=== PATIENT | male | born 1950 | race Caucasian/White ===

== ENCOUNTER → 2019-09-18 | Outpatient (CLI) | payer BC | END | disposition home or self-care (01) | LOC: LABWHC1 12:41 | PROVIDERS: ATTEND Family Medicine | DX: S86.011A Strain of right Achilles tendon, initial encounter (principal); M79.671 Pain in right foot | CPT/HCPCS: 36415; 85379 ==

== ENCOUNTER 2023-12-05 12:16 | Observation (INO) | payer BC ==
[2023-12-05] MEDS ORDERED: LIDOCAINE 1% INJ 10MG/ML (20 ML MDV) ONE (13:58)
[2023-12-05] MEDS ORDERED: HEPARIN SODIUM,PORCINE 30 ML 30 ML ONE (13:58)
[2023-12-05] MEDS ORDERED: VERAPAMIL 2.5 MG/ML 2 ML AMP ONE (13:58)
[2023-12-05] MEDS: IV FLUID CONTINUATION 1,000 ML IV ONE (14:35)
[2023-12-05] MEDS: HEPARIN SODIUM 1,000 UN/ML (10ML VL) IVP ONE (14:45)
[2023-12-05] MEDS: MIDAZOLAM 2 MG/2 ML VIAL IVP ONE (14:46)
[2023-12-05] MEDS: HYDROmorphone 0.5 MG/0.5 ML SYRINGE IVP ONE ×2 (14:46)
[2023-12-05] MEDS: VERAPAMIL SYRINGE (5 MG/10 ML) INTRAARTER ONE (14:47)
[2023-12-05] MEDS: LIDOCAINE 1% INJ 10MG/ML (30 ML VIAL-PF) SQ ONE (14:47)
[2023-12-05] MEDS ORDERED: NITROGLYCERIN SL TABS 0.4 MG TAB SUBLINGUAL ONE (14:59)
[2023-12-05] MEDS ORDERED: TICAGRELOR 90 MG TAB ONE (14:59)
[2023-12-05] MEDS ORDERED: ASPIRIN 81 MG ONE (15:01)
[2023-12-05] MEDS: ASPIRIN 81 MG PO ONE (15:06)
[2023-12-05] MEDS: NITROGLYCERIN SL TABS 0.4 MG TAB SUBLINGUAL ONE (15:07)
[2023-12-05] MEDS: TICAGRELOR 90 MG TAB PO ONE (15:07)
[2023-12-05] MEDS: IOPAMIDOL-370 100ML BTL INJ ONE ×2 (15:19→15:22)
[2023-12-05] MEDS: SODIUM CHLORIDE 0.9% 1,000 ML IV ONE (15:40)
[2023-12-05] MEDS: SODIUM CHLORIDE 0.9% 1,000 ML IV SCH (18:53)
[2023-12-05] MEDS: INSULIN ASPART (NovoLOG) 100 UNIT/ML VIAL SQ SCH (18:53)
[2023-12-05 20:56] LABS: Glucose,Whole Blood 246 mg/dL (70-110)
[2023-12-05] MEDS: ATORVASTATIN 80 MG TAB PO SCH (21:12)
[2023-12-05] MEDS: amLODIPine 5 MG TAB PO SCH (21:12)
--- NOTE | 2023-12-06 00:10 | PTCA ---
PERCUTANEOUSTRANS CORORONARY ANGIOGRAPHY PROCEDURE PERFORMED: PTCA and stenting of mid RCA with 2 drug-eluting stents. PERFORMED BY: Dr. Russ Portillo. ANESTHESIA: Moderate conscious sedation time was 45 minutes. Patient was administered Versed. Oxygen saturation, hemodynamics, and EKG were monitored closely. CLINICAL INFORMATION: Mr. Levi Mcguire is a 73-year-old morbidly obese gentleman with type 2 diabetes, hypertension, hyperlipidemia. He came in to [facility] with chest pain suggestive of angina, then had troponin elevation with no significant EKG changes. His clinical picture was that of a fpr-II-nktesvmvv SD. He also had a previous stenting in 2010, details unavailable. In view of his iwa-WM-[id number] SD and significant risk factors from previous PCI, I recommended coronary angiography and this was performed at [facility]. He also has mild aortic stenosis. Cardiac cath revealed an 80% mid RCA lesion just beyond the long stented segment and he also had a lesion involving the distal LAD, distal/mid LAD of about 50% to 60%, and also circumflex marginal which has a significant lesion. He was brought in for PCI of RCA. He received already about 60 mL of dye. Risks, benefits, and options were explained to the patient and and he was brought over by [facility]. PROCEDURE NOTE: The existing 6-Beninese introducer in the right radial artery was used to perform procedure. I used a standard JR4 guide catheter of 6-Beninese caliber and a run-through wire. I crossed the lesion in the RCA kept distally. With 3.0 caliber 12-mm NC Trek balloon, I pre-dilated the lesion and also the proximal portion of the RCA within the stented segment. I deployed a 3.5 caliber 12-mm long Xience stent. Excellent angiographic result was achieved. I used a 4.0 caliber NC Trek balloon and dilated the entire stented segment. Distal to the stent also, the balloon was extended and patient had a small flap. This was addressed with another 3.5 caliber 8 mm long Xience stent. Excellent angiographic result was achieved. Patient received 7000 units of heparin. ACT was 264. He received 180 mg of Brilinta. He will be on aspirin and Brilinta without interruption for 1 year. Excellent angiographic result was achieved of the RCA. I then performed coronary angiography of the left system and noted that the LAD lesion was no more than 40% to 50%, but the circumflex ostium as well as the circumflex marginal had a significant lesion and this will be addressed in a staged fashion. I will bring him back for the procedure in the next few weeks. Details of the procedure and the results were discussed with the patient and his . I expect he will be discharged tomorrow if he remains stable. Excellent angiographic result without complication was achieved. MMODNeno / IJN: [id number] /
[2023-12-06 05:50] VITALS: PULSE 70
[2023-12-06 06:45] LABS: Glucose,Whole Blood 132 mg/dL (70-110)
[2023-12-06] MEDS: ASPIRIN 81 MG PO SCH (08:38)
[2023-12-06] MEDS: DAPAGLIFLOZIN PROPANEDIOL 10 MG TABLET PO SCH (08:38)
[2023-12-06] MEDS: LOSARTAN 50 MG TAB PO SCH (08:38)
[2023-12-06] MEDS: TICAGRELOR 90 MG TAB PO SCH (08:39)
[2023-12-06 09:14] VITALS: BP 166/71; RESP 18; TEMP 97.8
--- NOTE | 2023-12-06 10:39 | P.PN ---
Subjective HISTORY OF PRESENT ILLNESS: Patient is status postcardiac catheterization with Dr. Portillo with PCI of the RCA. Patient was also found to have a lesion in the circumflex which will require staged intervention. Patient examined this morning. He is sitting up in the chair. He denies any chest pain or pressure. He denies any shortness of breath. He denies any dizziness or lightheadedness. He has been ambulating without difficulty. Vital signs are stable. PHYSICAL EXAM: VITAL SIGNS: Reviewed. GENERAL: Well-developed in no acute distress. NECK: Supple. No JVD or thyromegaly LUNGS: Respirations even and unlabored. Lungs essentially clear to auscultation bilaterally. HEART: Regular rate and rhythm. S1 and S2 heard. EXTREMITIES: Normal range of motion. No clubbing or cyanosis. Peripheral pulses intact. No lower extremity edema ASSESSMENT: Non-STEMI Coronary artery disease, status post PCI of the mid RCA with 2 drug-eluting st ents Significant lesion of circumflex, will require staged PCI Mild aortic stenosis PLAN: Continue dual antiplatelet therapy with aspirin and Brilinta Continue high intensity statin Continue additional cardiac medications Patient is stable for discharge home today from a cardiac standpoint He is to follow-up outpatient with Dr. Portillo Patient will undergo staged intervention of the circumflex Nurse practitioner note has been reviewed by physician. Signing provider agrees with the documented findings, assessment, and plan of care documented by SCRATCH [employer]ISHER as a scribe. Objective - Vital Signs Vital signs: Vital Signs Temp 97.8 F 12/06/23 08:36 Pulse 70 12/06/23 08:36 Resp 18 12/06/23 08:36 BP 166/71 12/06/23 08:36 Pulse Ox 97 12/06/23 08:36 FiO2 Intake & Output 12/05/23 12/06/23 12/06/23 18:59 06:59 18:59 Intake Total 135 260 118 Output Total 680 Balance -545 260 118 Weight 140 kg 134.6 kg Intake: IV 135 20 Invasive Line 1 10 Invasive Line 2 10 Oral 240 118 Output: Urine 680 Other: Voiding Method Toilet Toilet # Voids 1 - Labs Labs: Abnormal Lab Results - Last 24 Hours (Table) 12/05/23 12/06/23 Range/Units 20:54 06:24 POC Glucose (mg/dL) 246 H 132 H (70-110) mg/dL
[2023-12-06 11:37] LABS: Glucose,Whole Blood 140 mg/dL (70-110)
[2023-12-06 11:54] LABS: Basophils # (A) 0.1 k/uL (0-0.2); Basophils % (A) 1 %; Eosinophils # (A) 0.3 k/uL (0-0.7); Eosinophils % (A) 3 %; HCT 43.4 % (39.0-53.0); HGB 14.5 gm/dL (13.0-17.5); Lymphocytes # (A) 1.8 k/uL (1.0-4.8); Lymphocytes % (A) 20 %; MCH 31.2 pg (25.0-35.0); MCHC 33.4 g/dL (31.0-37.0); MCV 93.3 fL (80.0-100.0); Mean Platelet Volume 7.2; Monocytes # (A) 0.7 k/uL (0-1.0); Monocytes % (A) 8 %; Neutrophils # (A) 6.1 k/uL (1.3-7.7); Neutrophils % (A) 67 %; Platelet Count 241 k/uL (150-450); RBC 4.66 m/uL (4.30-5.90)
[2023-12-06 12:21] LABS: African American GFR (CKD) >90 (>60 ml/min/1.73 sqM); Anion Gap 14 mmol/L; Blood Urea Nitrogen 18 mg/dL (9-20); Calcium 9.6 mg/dL (8.4-10.2); Carbon Dioxide 21 mmol/L (22-30); Chloride 103 mmol/L (98-107); Glucose 137 mg/dL (74-99); Non-African American GFR(CKD) 82 (>60 ml/min/1.73 sqM); Sodium 138 mmol/L (137-145)
[2023-12-06] MEDS ORDERED: LOSARTAN 50 MG TAB PO SCH (21:00)
--- NOTE | 2023-12-12 19:19 | P.HPIM ---
History of Present Illness H&P Date: 12/06/23 Chief Complaint: Chest pain Patient is a 73-year-old male with a past medical history of coronary artery disease, hypertension, hyperlipidemia, diabetes type 2 uwy-xjthjrg-tgkglcold and a history of CO and prior history of stent placement initially presented to [facility] with complaints of chest pain and elevated troponin level. No ST-T changes in the EKG. Patient was admitted to the hospital due to non-ST CO. Patient was status post cardiac catheterization at [facility] showed 80% mid RCA lesion just beyond the long stented segment and he also had a lesion involving the distal LAD and distal/mid LAD after about 50 to 60% and also circumflex marginal which has a significant lesion. Patient was transferred to [facility] for PCI of RCA. Patient is status post cardiac catheterization and stent placement to RCA. Patient will need staged intervention of the circumflex artery. Currently patient is sitting in the chair. Denies any chest pain or shortness of breath. No nausea vomiting abdominal pain or diarrhea. Denies any dizziness or lightheadedness. Able to ambulate without any chest pain or shortness of breath. Hemodynamically stable. Laboratory test showed WBC 9.0 hemoglobin 14.5 and platelets 241 Sodium 138 potassium 4.0 provide 103 bicarb is 21 BUN 18 and creatinine 0.93 and blood sugar 137 and calcium 9.6. Review of Systems Constitutional: Patient denies any fever or chills . No generalized weakness or weight loss. Abdomen: Patient denied nausea vomiting and diarrhea and abdominal pain. Cardiovascular: Patient denies any chest pain or short of breath no palpitations. Respiratory: patient denied any cough is from production. No shortness of breath Neurologic: Patient denied any numbness or tingling headache. Musculoskeletal: Patient denies any complaints of joint swelling or deformity. Skin: Negative Psychiatric: Negative Endocrine: No heat or cold intolerance. No recent weight gain. Genitourinary: No dysuria or hematuria. All other 14 point ROS negative except the above Past Medical History Past Medical History: Coronary Artery Disease (CAD), Chest Pain / Angina, Diabetes Mellitus, Hyperlipidemia, Hypertension, Myocardial Infarction (CO) Last Myocardial Infarction Date:: 2010 History of Any Multi-Drug Resistant Organisms: None Reported Past Surgical History: Heart Catheterization With Stent Past Anesthesia/Blood Transfusion Reactions: No Reported Reaction Date of Last Stent Placement:: 2010 Past Psychological History: No Psychological Hx Reported Smoking Status: Never smoker Medications and Allergies Home Medications Medication Instructions Recorded Confirmed Type Aspirin EC [Ecotrin Low Dose] 81 mg PO DAILY 12/05/23 12/05/23 History Metoprolol Tartrate [Lopressor] 50 mg PO BID 12/05/23 12/05/23 History Nitroglycerin Sl Tabs [Nitrostat] 0.4 mg SL Q5M PRN 12/05/23 12/05/23 History Triamcinolone 0.1% Ointment 1 applic TOPICAL BID PRN 12/05/23 12/05/23 History [Kenalog 0.1% Ointment] metFORMIN HCL [Glucophage] 500 mg PO BID 12/05/23 12/05/23 History Atorvastatin [Lipitor] 80 mg PO HS #90 tab 12/06/23 Rx Losartan [Cozaar] 50 mg PO BID #180 tab 12/06/23 Rx Ticagrelor [Brilinta] 90 mg PO BID #180 tab 12/06/23 Rx amLODIPine [Norvasc] 5 mg PO BID #180 tab 12/06/23 Rx Allergies Allergy/AdvReac Type Severity Reaction Status Date / Time No Known Allergies Allergy Verified 12/05/23 17:48 Physical Exam Vitals: Vital Signs Temp Pulse Pulse Pulse Resp BP Pulse Ox 12/06/23 08:36 97.8 F 70 18 166/71 97 12/06/23 04:00 70 16 160/83 98 12/06/23 00:00 64 16 164/83 99 12/05/23 20:00 97.7 F 62 16 163/70 97 12/05/23 18:05 18 12/05/23 17:45 98.2 F 55 L 18 171/83 99 12/05/23 15:40 54 L 14 95 Intake and Output 12/05/23 12/06/23 12/06/23 22:59 06:59 14:59 Intake Total 395 118 Output Total 680 Balance -285 118 Intake: IV 155 Invasive Line 1 10 Invasive Line 2 10 Oral 240 118 Output: Urine 680 Other: Voiding Method Toilet Toilet Toilet # Voids 1 1 Weight 140 kg 134.6 kg PHYSICAL EXAMINATION: Patient is lying in the bed comfortably, no acute distress, awake alert and oriented.. HEENT: Normocephalic. Neck is supple. Pupils reactive. Nostrils clear. Oral cavity is moist. Neck reveals no JVD, carotid bruits, or thyromegaly. CHEST EXAMINATION: Trachea is central. Symmetrical expansion. Lung negro clear to auscultation and percussion. CARDIAC: Normal S1, S2 with no gallops. No murmurs ABDOMEN: Soft. Bowel sounds normal. No organomegaly. No abdominal bruits. Extremities: bilateral lower extremity trace edema. No clubbing or cyanosis Neurologically awake, alert, oriented x3 with well-coordinated movements. No focal deficits noted Skin: No rash or skin lesions. Psychiatric: Coperative. Nonsuicidal Musculoskeletal: No joint swelling or deformity. Normal range of motion. Results CBC & Chem 7: 12/06/23 09:58 12/06/23 09:58 Labs: Abnormal Lab Results - Last 24 Hours (Table) 12/05/23 12/06/23 Range/Units 20:54 06:24 POC Glucose (mg/dL) 246 H 132 H (70-110) mg/dL Thrombosis Risk Factor Assmnt - DVT/VTE Prophylaxis DVT/VTE Prophylaxis: Pharmacologic Prophylaxis ordered - Choose All That Apply Any of the Below Risk Factors Present?: Yes Each Factor Represents 1 point: Obesity (BMI >25) Other Risk Factors: Yes Each Risk Factor Represents 2 Points: Age 61-74 years Other congenital or acquired thrombophilia - If yes, enter type in comment: No Thrombosis Risk Factor Assessment Total Risk Factor Score: 3 Thrombosis Risk Factor Assessment Level: Moderate Risk Assessment and Plan Assessment: Acute non-ST right CO status post cardiac catheterization and stent placement to mid RCA with 2 drug-eluting stents. Significant lesion in the circumflex marginal which will require staged inter vention. Coronary artery disease history of prior stent placement Mild aortic stenosis Diabetes type 2 enp-pjedxmz-bmrzwzjwf Hypertension Hyperlipidemia History of CO GI and DVT prophylaxis Plan: Patient will be continued on dual antiplatelet agents aspirin and Brilinta and statin. Continue with metoprolol, losartan and Norvasc. Continue with insulin sliding scale while in the hospital. Currently telemetry monitoring. Patient otherwise denies any complaints of chest pain or shortness of breath. Able to ambulate without symptoms. Cardiology is on board. Follow-up closely. Time with Patient: Greater than 30
--- NOTE | 2023-12-12 19:21 | P.DS ---
Providers Date of admission: 12/05/23 12:34 Expected date of discharge: 12/06/23 Attending physician: Idalia Kidd Consults: 12/06/23 08:25 Consult Physician Routine Consulting Provider: Steven Holbrook Consult Reason/Comments: s/p PCI Do you want consulting provider notified?: Already Contacted Primary care physician: [place] Hospital Course: Discharge diagnosis Acute non-ST right AL status post cardiac catheterization and stent placement to mid RCA with 2 drug-eluting stents. Significant lesion in the circumflex marginal which will require staged intervention. Coronary artery disease history of prior stent placement Mild aortic stenosis Diabetes type 2 pnz-tcxxrzr-llxhqmnuk Hypertension Hyperlipidemia History of AL GI and DVT prophylaxis Hospital course Patient is a 73-year-old male with a past medical history of coronary artery disease, hypertension, hyperlipidemia, diabetes type 2 vxt-zzimafj-lnizinsze and a history of AL and prior history of stent placement initially presented to [facility] with complaints of chest pain and elevated troponin level. No ST-T changes in the EKG. Patient was admitted to the hospital due to non-ST AL. Patient was status post cardiac catheterization at [facility] showed 80% mid RCA lesion just beyond the long stented segment and he also had a lesion involving the distal LAD and distal/mid LAD after about 50 to 60% and also circumflex marginal which has a significant lesion. Patient was transferred to [facility] for PCI of RCA. Patient is status post cardiac catheterization and stent placement to RCA. Patient will need staged intervention of the circumflex artery. Currently patient is sitting in the chair. Denies any chest pain or shortness of breath. No nausea vomiting abdominal pain or diarrhea. Denies any dizziness or lightheadedness. Able to ambulate without any chest pain or shortness of breath. Hemodynamically stable. Laboratory test showed WBC 9.0 hemoglobin 14.5 and platelets 241 Sodium 138 potassium 4.0 provide 103 bicarb is 21 BUN 18 and creatinine 0.93 and blood sugar 137 and calcium 9.6. Patient will be continued on dual antiplatelet agents aspirin and Brilinta and statin. Continue with metoprolol, losartan and Norvasc. Continue with insulin sliding scale while in the hospital. Continue home regimen of hypoglycemic agents. Patient otherwise denies any complaints of chest pain or shortness of breath. Able to ambulate without symptoms. Patient is being discharged home today. Follow-up with cardiology and primary care physician as an outpatient. PHYSICAL EXAMINATION: Patient is lying in the bed comfortably, no acute distress, awake alert and oriented.. HEENT: Normocephalic. Neck is supple. Pupils reactive. Nostrils clear. Oral cavity is moist. Neck reveals no JVD, carotid bruits, or thyromegaly. CHEST EXAMINATION: Trachea is central. Symmetrical expansion. Lung negro clear to auscultation and percussion. CARDIAC: Normal S1, S2 with no gallops. No murmurs ABDOMEN: Soft. Bowel sounds normal. No organomegaly. No abdominal bruits. Extremities: reveal no edema. No clubbing or cyanosis Neurologically awake, alert, oriented x3 with well-coordinated movements. No focal deficits noted Skin: No rash or skin lesions. Psychiatric: Coperative. Nonsuicidal Musculoskeletal: No joint swelling or deformity. Normal range of motion. Discharge vitals reviewed. Patient Condition at Discharge: Stable Plan - Discharge Summary Discharge Rx Participant: No New Discharge Prescriptions: New Ticagrelor [Brilinta] 90 mg PO BID #180 tab Losartan [Cozaar] 50 mg PO BID #180 tab Atorvastatin [Lipitor] 80 mg PO HS #90 tab amLODIPine [Norvasc] 5 mg PO BID #180 tab Continue Nitroglycerin Sl Tabs [Nitrostat] 0.4 mg SL Q5M PRN PRN Reason: Chest Pain Metoprolol Tartrate [Lopressor] 50 mg PO BID Aspirin EC [Ecotrin Low Dose] 81 mg PO DAILY Triamcinolone 0.1% Ointment [Kenalog 0.1% Ointment] 1 applic TOPICAL BID PRN PRN Reason: Rash metFORMIN HCL [Glucophage] 500 mg PO BID Discontinued Irbesartan/Hydrochlorothiazide [Avalide 150-12.5 mg Tablet] 1 tab PO DAILY Atorvastatin [Lipitor] 20 mg PO Q2D@2100 amLODIPine [Norvasc] 10 mg PO DAILY Discharge Medication List Aspirin EC [Ecotrin Low Dose] 81 mg PO DAILY 12/05/23 [History] Metoprolol Tartrate [Lopressor] 50 mg PO BID 12/05/23 [History] Nitroglycerin Sl Tabs [Nitrostat] 0.4 mg SL Q5M PRN 12/05/23 [History] Triamcinolone 0.1% Ointment [Kenalog 0.1% Ointment] 1 applic TOPICAL BID PRN 12/05/23 [History] metFORMIN HCL [Glucophage] 500 mg PO BID 12/05/23 [History] Atorvastatin [Lipitor] 80 mg PO HS #90 tab 12/06/23 [Rx] Losartan [Cozaar] 50 mg PO BID #180 tab 12/06/23 [Rx] Ticagrelor [Brilinta] 90 mg PO BID #180 tab 12/06/23 [Rx] amLODIPine [Norvasc] 5 mg PO BID #180 tab 12/06/23 [Rx] Follow up Appointment(s)/Referral(s): Pascual Portillo MD [STAFF PHYSICIAN] - 1 Week (Office will call you with follow up appointment ) Activity/Diet/Wound Care/Special Instructions: CARDIAC CATH Support your puncture site by applying firm, steady pressure whenever you cough, laugh, sneeze or bear down to have a bowel movement (2-day restriction). Watch for any excessive bruising, active bleeding, a firm knot forming under your skin, extreme tenderness and signs of infection (redness, swelling, fever). Shower daily, do not soak puncture in a tub bath, jacuzzi, pool, bella etc. for 1 week. This is to prevent risk of infection. Drink plenty of fluids the day of and day after your procedure to flush contrast dye out of your kidneys. Take all medications as directed. Never stop any new medication without your physicians OK. No driving for 2 days after procedure. 10- pound weight lifting restriction for 1 week. Low sodium/low fat diet. Activity limited until follow up appointment with your jacquard twine polisher operator. In case of any problems, please call [facility] [place] @ [phone]. Just some important facts for you to know after your stent placement Aspirin as anti-platelet therapy - Aspirin lessens the chance of heart attack and stroke. It helps prevent blood clots from forming, allowing the blood to flow more easily. Each day, you will take one 81 mg (non-enteric coated) tablet daily. Do not stop unless instructed by your doctor. Anti-platelet Therapy. -In addition to aspirin, you will take one additional anti-platelet medication daily. This will help prevent a clot from forming in your stent: Ticagreler (Brillinta) -You will need to take your anti-platelet medicine every day for 12 months -Please consult your heart doctor before you stop this medicine. -They may want you to continue for a longer period of time. Statins -A statin medication lowers cholesterol levels in the blood. This helps slow the progression of heart disease. - Please take your statin medication as prescribed by your doctor. -You may be taking one of the following statins: Rosuvastatin Beta blockers -Your Medication: Metoprolol Is a medication that protects your heart from stress and can prevent future heart attacks. It can slow your heart rate. It can take weeks for your body to get used to a beta sincere. The dose may need to be changed a few times as your body adjusts Angiotensin receptor sincere (ARB) -Your medication: Losartan is an angiotensin receptor sincere in the ER used to reduce cardiovascular events and decrease the risk of developing diabetes, these medications are also known to prevent left ventricular remodeling after you have suffered a myocardial infarction. Do not stop taking these medicines without talking to your doctor. -Take all other medicines as directed by your doctor. Do not take any extra aspirin or ibuprofen. They can increase your risk of bleeding. Many qcuv-ill-beigwnb drugs contain aspirin. If you are unsure about what the drug contains, check with your pharmacist before taking it. -For mild discomfort, you may take plain Tylenol (acetaminophen). Follow dose directions, but do not take more than 4,000 mg of acetaminophen in 24 hours. Contact your doctor right away or go to the nearest hospital Emergency Room if you have: -Severe angina or chest pain. (This may be a sign of a problem with your stent.) -Excessive bruising, blood in urine/stool or black tarry stools. Healthy LifeStyle It is important to keep a heart healthy lifestyle. This can improve your long- term health and decrease your risk for heart attacks. -Managing your blood cholesterol, blood pressure, weight, and stress. -The importance of regular exercise. -Heart Healthy Diet: Include more plants in your diet. Eat lots of fresh vegetables and fresh fruits. Eat good fats: plant based oils, avocado, nuts, beans, legumes. Eat more seafood. Limit Meat. Switch to whole grains. -Avoid fried foods and animal fats and processed meats Follow up with your PCP and [facility] Disposition: HOME SELF-CARE
== END 2023-12-06 13:23 | disposition home or self-care (01) ==
LOC: 6NMEDSUR 12:34 → 3SCARD 16:40
PROVIDERS: ADMIT Internal Medicine; ATTEND Internal Medicine
DX: I21.4 Non-ST elevation (NSTEMI) myocardial infarction (principal); I25.10 Atherosclerotic heart disease of native coronary artery without angina pectoris; I35.0 Nonrheumatic aortic (valve) stenosis; E11.9 Type 2 diabetes mellitus without complications; I10 Essential (primary) hypertension; E78.5 Hyperlipidemia, unspecified; I25.2 Old myocardial infarction; E66.01 Morbid (severe) obesity due to excess calories; Z68.41 Body mass index [BMI] 40.0-44.9, adult; Z95.5 Presence of coronary angioplasty implant and graft; Z79.82 Long term (current) use of aspirin; Z79.899 Other long term (current) drug therapy; Z79.84 Long term (current) use of oral hypoglycemic drugs; Z79.02 Long term (current) use of antithrombotics/antiplatelets
CPT/HCPCS: 80048; 85025; G0379; G0378 ×3; C9600; C1887; C1769 ×2; C1753; C1874; C1725 ×2; J2250; J2001; J1644; J1170; Q9967